=== PATIENT | male | born 1965 | race Caucasian/White ===

== ENCOUNTER 2021-08-23 21:58 | Inpatient (IN) | payer BC, OTHER ==
[~2021-08-23] VITALS: Ht 188 cm; Wt 147.1 kg
[2021-08-23] MEDS ORDERED: dilTIAZem 125mg/125ml BAG KIT 125 ML IV ONE (22:45)
[2021-08-23] MEDS ORDERED: DOCUSATE SOD 100 MG CAP PO PRN (23:00)
[2021-08-23] MEDS ORDERED: ONDANSETRON HCL 4 MG/2 ML VIAL IV PRN (23:00)
[2021-08-23] MEDS ORDERED: hydrALAZINE HCL 20 MG/ML VL IV PRN (23:00)
[2021-08-23] MEDS ORDERED: ACETAMINOPHEN 325 MG TAB PO PRN (23:00)
[2021-08-23 23:45] LABS: Basophils # (auto) 0.1 10 ^3/uL (0-0.2); Basophils % (auto) 1.2 % (0.0-2.0); Eosinophils # (auto) 0.1 10 ^3/uL (0-0.8); Eosinophils % (auto) 1.4 % (0.0-7.0); Hematocrit 44.2 % (41.0-53.0); Hemoglobin 15.7 g/dL (13.5-17.5); Lymphocytes # (auto) 2.4 10 ^3/uL (0.4-5.4); Lymphocytes % (auto) 25.9 % (10.0-50.0); Mean Corpuscular Hemoglobin 28.9 pg (28.0-32.0); Mean Corpuscular Hgb Conc. 35.4 g/dL (32.0-36.0); Mean Corpuscular Volume 81.6 fL (80.0-100.0); Monocytes # (auto) 0.7 10 ^3/uL (0-1.3); Monocytes % (auto) 7.4 % (0.0-12.0); Neutrophils % (auto) 64.1 % (37.0-80.0); Nucleated Red Blood Cells % 0.2 %; Red Blood Cells 5.42 10^6/uL (4.5-5.90); Red Cell Distribution Width 16.1 % (11.8-14.3); White Blood Cell 9.3 10^3/uL (4.4-10.8)
[2021-08-23] MEDS ORDERED: dilTIAZem 25 MG/5 ML VIAL IV ONE ×2 (23:46→23:47)
[2021-08-23] MEDS ORDERED: dilTIAZem HCL 50 MG/10 ML VIAL IV ONE (23:46)
[2021-08-23 23:59] LABS: Albumin 3.5 g/dL (3.4-5.0); Magnesium 2.1 mg/dL (1.6-2.6); Potassium 3.8 mmol/L (3.5-5.1)
[2021-08-24 00:08] LABS: BUN/Creatinine Ratio 16.5; Bilirubin, Total 1.1 mg/dL (0.2-1.0); CRP High Sensitivity 9.9 mg/dL (< 0.3); Total Protein 7.7 g/dL (6.4-8.2)
[2021-08-24] MEDS: MORPHINE SULFATE INJ 2 MG/ml SYRG IV PRN ×4 (00:22→20:15)
[2021-08-24] MEDS ORDERED: IOHEXOL 350 MG/ML 100ML IJ ONE (01:39)
[2021-08-24] MEDS ORDERED: MORPHINE SULFATE INJ 2 MG/ml SYRG IV PRN (01:45)
[2021-08-24] MEDS ORDERED: NITROGLYCERIN 0.4 MG SL TAB SL PRN (01:45)
[2021-08-24] MEDS: HYDROcodone-ACET 5/325MG TAB PO PRN ×4 (02:46→23:28)
[2021-08-24 04:44] VITALS: BP 130/77
[2021-08-24] MEDS: SODIUM CHLOR 0.9% PF (SALINE LOCK) 10ML VIAL/SYR IV SCH ×3 (05:22→22:23)
[2021-08-24] MEDS: HEPARIN SODIUM (PORCINE) 5000 UNITS/ML 1ML VIAL SC SCH ×3 (05:45→22:22)
[2021-08-24 05:57] LABS: Basophils # (auto) 0 10 ^3/uL (0-0.2); Basophils % (auto) 0.4 % (0.0-2.0); Eosinophils # (auto) 0.1 10 ^3/uL (0-0.8); Eosinophils % (auto) 0.9 % (0.0-7.0); Hematocrit 44.2 % (41.0-53.0); Lymphocytes % (auto) 29.2 % (10.0-50.0); Mean Corpuscular Hemoglobin 29.5 pg (28.0-32.0); Mean Corpuscular Hgb Conc. 36.2 g/dL (32.0-36.0); Mean Corpuscular Volume 81.5 fL (80.0-100.0); Monocytes % (auto) 9.7 % (0.0-12.0); Neutrophils # (auto) 6.1 10 ^3/uL (1.6-8.6); Neutrophils % (auto) 59.8 % (37.0-80.0); Nucleated Red Blood Cells % 0.1 %; Red Blood Cells 5.42 10^6/uL (4.5-5.90); White Blood Cell 10.3 10^3/uL (4.4-10.8)
[2021-08-24 06:00] VITALS: BP 136/88
[2021-08-24 06:15] LABS: Potassium 4.1 mmol/L (3.5-5.1)
[2021-08-24 06:22] LABS: Albumin 3.5 g/dL (3.4-5.0); BUN/Creatinine Ratio 14.7; Bilirubin, Total 1.5 mg/dL (0.2-1.0); Calcium 8.9 mg/dL (8.5-10.1); Total Protein 7.9 g/dL (6.4-8.2)
[2021-08-24] MEDS: FAMOTIDINE (10MG/ML) 2ML VL IV SCH ×2 (08:35→22:18)
[2021-08-24] MEDS: ASPirin 81 mg TAB PO SCH (08:35)
[2021-08-24 09:00] VITALS: BP 133/108
[2021-08-24] MEDS ORDERED: HYDR-4798 PO (09:32)
[2021-08-24] MEDS ORDERED: CARVEDILOL 3.125 MG TAB PO SCH (10:00)
[2021-08-24 11:16] LABS: Urine Bacteria NONE SEEN /hpf (None Seen); Urine Blood Negative /uL (Negative); Urine Mucus FEW (None Seen); Urine WBC <1 /hpf (0 - 3)
[2021-08-24 11:37] LABS: Alcohol, Urine < 3.0 mg/dL (0-10); Cannabinoid Screen, Urine NEGATIVE (NEGATIVE); Opiate Scree,Urine POSITIVE (NEGATIVE); Phencyclidine Screen, Urine NEGATIVE (NEGATIVE)
[2021-08-24 11:45] LABS: Amphetamine Screen, Urine NEGATIVE (NEGATIVE); Barbiturate Scree,Urine NEGATIVE (NEGATIVE); Benzodiazephine Screen, Urine NEGATIVE (NEGATIVE); Cocaine Screen, Urine NEGATIVE (NEGATIVE)
[2021-08-24 12:25] LABS: Cholesterol 178 mg/dL (< 200); HDL Cholesterol 43 mg/dL (40-59); LDL Cholesterol 118 mg/dL (< 100); Triglycerides 114 mg/dL (< 150)
[2021-08-24 13:00] VITALS: BP 152/108
[2021-08-24 17:00] VITALS: BP 149/85
[2021-08-24 21:45] VITALS: BP 132/95
[2021-08-24] MEDS: AMIODARONE HCL 200 MG TAB PO SCH (22:18)
[2021-08-24] MEDS: METOPROLOL TARTRATE 50 MG TAB PO SCH (22:19)
[2021-08-24] MEDS ORDERED: TEMAZEPAM 15 MG CAP PO ONE (22:30)
[2021-08-25] MEDS: MORPHINE SULFATE INJ 2 MG/ml SYRG IV PRN ×3 (00:28→09:24)
[2021-08-25] MEDS: HYDROcodone-ACET 5/325MG TAB PO PRN ×2 (03:32→11:05)
[2021-08-25 05:24] VITALS: BP 125/85
[2021-08-25] MEDS: SODIUM CHLOR 0.9% PF (SALINE LOCK) 10ML VIAL/SYR IV SCH ×3 (06:05→22:03)
[2021-08-25] MEDS: HEPARIN SODIUM (PORCINE) 5000 UNITS/ML 1ML VIAL SC SCH (06:05)
[2021-08-25 08:48] VITALS: BP 122/86
[2021-08-25] MEDS: FAMOTIDINE (10MG/ML) 2ML VL IV SCH ×2 (09:44→22:04)
[2021-08-25] MEDS: AMIODARONE HCL 200 MG TAB PO SCH ×2 (09:45→22:03)
[2021-08-25] MEDS: ASPirin 81 mg TAB PO SCH (09:45)
[2021-08-25] MEDS: METOPROLOL TARTRATE 50 MG TAB PO SCH ×2 (09:45→22:04)
[2021-08-25] MEDS ORDERED: PATIENTS OWN MEDICATION (XARELTO 20 MG) PO SCH (10:00)
[2021-08-25] MEDS ORDERED: COLCHICINE 0.6 MG CAP PO ONE (10:15)
[2021-08-25] MEDS ORDERED: ALLOPURINOL 300 MG TAB PO ONE (10:15)
[2021-08-25] MEDS ORDERED: ATORVASTATIN 20 MG TAB PO ONE (10:30)
[2021-08-25] MEDS ORDERED: methylPREDNISolone SOD SUCC 125 MG/2 ML VL IM ONE (10:30)
[2021-08-25 13:00] VITALS: BP 132/90
[2021-08-25 17:00] VITALS: BP 122/81
[2021-08-25] MEDS ORDERED: RIVAROXABAN 20 MG TAB PO ONE (18:45)
[2021-08-25 22:00] VITALS: BP 150/73
[2021-08-25] MEDS: ATORVASTATIN 20 MG TAB PO SCH (22:02)
[2021-08-25] MEDS: methylPREDNISolone SOD SUCC 40 MG/ML VL IV SCH (22:03)
[2021-08-26 05:00] VITALS: BP 122/77
[2021-08-26] MEDS: SODIUM CHLOR 0.9% PF (SALINE LOCK) 10ML VIAL/SYR IV SCH ×3 (06:20→22:07)
[2021-08-26] MEDS: methylPREDNISolone SOD SUCC 40 MG/ML VL IV SCH ×2 (08:59→22:08)
[2021-08-26] MEDS: ASPirin 81 mg TAB PO SCH (08:59)
[2021-08-26] MEDS: FAMOTIDINE (10MG/ML) 2ML VL IV SCH ×2 (08:59→22:07)
[2021-08-26 09:00] VITALS: BP 136/87
[2021-08-26] MEDS: AMIODARONE HCL 200 MG TAB PO SCH ×2 (09:00→22:08)
[2021-08-26] MEDS: METOPROLOL TARTRATE 50 MG TAB PO SCH ×2 (09:01→22:09)
[2021-08-26] MEDS: ALLOPURINOL 300 MG TAB PO SCH (09:02)
[2021-08-26] MEDS ORDERED: COLCHICINE 0.6 MG CAP PO SCH (10:00)
[2021-08-26 10:15] LABS: Free T4 (Free Thyroxine) 1.38 ng/dL (0.89-1.76)
[2021-08-26 10:16] LABS: Free T3 2.71 pg/mL (2.3-4.2)
[2021-08-26 13:19] VITALS: BP 142/58
[2021-08-26] MEDS: RIVAROXABAN 20 MG TAB PO SCH (17:02)
[2021-08-26 17:33] VITALS: BP 128/84
[2021-08-26] MEDS: COLCHICINE 0.6 MG CAP PO SCH (18:50)
[2021-08-26 22:00] VITALS: BP 141/80
[2021-08-26] MEDS: ATORVASTATIN 20 MG TAB PO SCH (22:08)
[2021-08-27 05:00] VITALS: BP 124/58
[2021-08-27] MEDS: SODIUM CHLOR 0.9% PF (SALINE LOCK) 10ML VIAL/SYR IV SCH ×3 (06:29→21:58)
[2021-08-27] MEDS: COLCHICINE 0.6 MG CAP PO SCH ×2 (08:19→17:25)
[2021-08-27] MEDS: ASPirin 81 mg TAB PO SCH (08:19)
[2021-08-27] MEDS: methylPREDNISolone SOD SUCC 40 MG/ML VL IV SCH ×3 (08:19→21:58)
[2021-08-27] MEDS: FAMOTIDINE (10MG/ML) 2ML VL IV SCH ×2 (08:19→21:58)
[2021-08-27] MEDS: AMIODARONE HCL 200 MG TAB PO SCH ×2 (08:20→21:59)
[2021-08-27] MEDS: ALLOPURINOL 300 MG TAB PO SCH (08:21)
[2021-08-27] MEDS: METOPROLOL TARTRATE 50 MG TAB PO SCH ×2 (08:21→22:02)
[2021-08-27 09:00] VITALS: BP 119/64
[2021-08-27 13:00] VITALS: BP 113/63
[2021-08-27 17:00] VITALS: BP 115/76
[2021-08-27] MEDS: RIVAROXABAN 20 MG TAB PO SCH (17:26)
[2021-08-27] MEDS: ATORVASTATIN 20 MG TAB PO SCH (21:59)
[2021-08-27 22:00] VITALS: BP 125/75
[2021-08-28 05:00] VITALS: BP 128/93
[2021-08-28] MEDS: SODIUM CHLOR 0.9% PF (SALINE LOCK) 10ML VIAL/SYR IV SCH (06:00)
[2021-08-28] MEDS: COLCHICINE 0.6 MG CAP PO SCH (08:39)
[2021-08-28] MEDS ORDERED: COLC1TAB3 PO (10:04)
[2021-08-28] MEDS ORDERED: METO25TA5 PO (10:04)
[2021-08-28] MEDS ORDERED: ATO40T PO (10:04)
[2021-08-28] MEDS ORDERED: HYDR1TAB97 PO (10:04)
[2021-08-28] MEDS ORDERED: ALL300T PO (10:04)
[2021-08-28] MEDS ORDERED: RIVA20TA PO (10:04)
[2021-08-28] MEDS ORDERED: AMIO200T33 PO (10:04)
[2021-08-28] MEDS: ASPirin 81 mg TAB PO SCH (10:44)
[2021-08-28] MEDS: ALLOPURINOL 300 MG TAB PO SCH (10:44)
[2021-08-28] MEDS: METOPROLOL TARTRATE 50 MG TAB PO SCH (10:45)
[2021-08-28] MEDS: FAMOTIDINE (10MG/ML) 2ML VL IV SCH (10:45)
[2021-08-28] MEDS: methylPREDNISolone SOD SUCC 40 MG/ML VL IV SCH (10:45)
[2021-08-28] MEDS: AMIODARONE HCL 200 MG TAB PO SCH (10:46)
== END 2021-08-28 13:07 | disposition home or self-care (01) | DRG 291 ==
LOC: EDBD 21:58 → ER 22:07 → TELE 08-24 01:37 → TELE-WESTW 08-24 02:54
PROVIDERS: ADMIT Nurse Practitioner Family; ATTEND Family Medicine
DX: I11.0 Hypertensive heart disease with heart failure (principal); I50.21 Acute systolic (congestive) heart failure; Z68.41 Body mass index [BMI] 40.0-44.9, adult; I48.91 Unspecified atrial fibrillation; M79.89 Other specified soft tissue disorders; E66.01 Morbid (severe) obesity due to excess calories; E78.00 Pure hypercholesterolemia, unspecified; E78.5 Hyperlipidemia, unspecified; M25.521 Pain in right elbow; M17.12 Unilateral primary osteoarthritis, left knee; I25.10 Atherosclerotic heart disease of native coronary artery without angina pectoris; Z20.822 Contact with and (suspected) exposure to COVID-19; Z80.1 Family history of malignant neoplasm of trachea, bronchus and lung; Z82.49 Family history of ischemic heart disease and other diseases of the circulatory system; Z83.3 Family history of diabetes mellitus; Z86.16 Personal history of COVID-19; Z87.01 Personal history of pneumonia (recurrent); Z91.14 Patient's other noncompliance with medication regimen
CPT/HCPCS: 36415; 71045; 71275; 73080; 73200; 73560; 75635; 80053; 80061; 80307; 81001; 83036; 83605; 83735; 83880; 84439; 84443; 84481; 84484; 84550; 85025; 85379; 86141; 87040; 87205; 89051; 89060; 93005; 93306; 93971; 96365; 99291; G0378; J3490